=== PATIENT | male | born 1935 | race Caucasian/White ===

== ENCOUNTER → 2025-02-22 | Outpatient (CLI) | payer MEDICARE, SELFPAY ==
--- NOTE | 2025-02-22 14:49 | RAD_ITS ---
PROCEDURE: PELVIS 1 OR 2 VIEWS 02/22/2025 REASON FOR EXAM: INFLAMMATORY POLYARTHROPATHY TECHNIQUE: Procedure Code: RADPEL Modality: DX Procedure: PELVIS 1 OR 2 VIEWS COMPARISON: None available. FINDINGS: No evidence of acute fracture or dislocation. Mild right hip arthrosis. Left hip hemiarthroplasty with intact appearing hardware. Qualitative osteopenia. Degenerative changes of the lower lumbosacral spine. Grossly normal and symmetric appearance of the sacroiliac joints. Unremarkable soft tissues. RAD/Pelvis 1 or 2 Views IMPRESSION: No acute or aggressive osseous abnormality. Left hip arthroplasty with intact hardware. Reading Location: [id number]
[2025-02-22 18:06] LABS: Hematocrit 36.7 % (40-54); Hemoglobin 12.2 g/dL (13.0-16.5); Immature Granulocytes Count 0.040 X10^3/uL (0.0-0.0); Mean Corp Hgb Conc 33.2 g/dL (32-36); Mean Corpuscular Volume 95.1 fL (80-94); Mean Platelet Vol. 9.6 fl (6.2-12.0); NRBC Flagged by Analyzer 0 % (0-5); Platelet Count 344 K/mm3 (150-450); RBC Distribution Width CV 13.2 % (11.6-14.6); RBC Distribution Width SD 45.8 fl (35.1-43.9); Red Blood Count 3.86 M/mm3 (4.6-6.2); White Blood Count 9.4 K/mm3 (4.4-11.0)
[2025-02-22 19:10] LABS: AST(SGOT) 17 U/L (<=37); Alanine Aminotransfer ALT/SGPT 13 U/L (<=46); Albumin, Serum 4.1 g/dL (3.4-4.8); Alkaline Phosphatase 90 U/L (40-129); Anion Gap 19 (5-15); BUN 45 mg/dL (4-19); BUN/Creat Ratio 28.3 RATIO (10-20); Calcium,Total 9.6 mg/dL (7.6-11.0); Carbon Dioxide 18.8 mmol/L (21.0-32.0); Chloride 102 mmol/L (98-108); Globulin 3.7 g/dL (2.2-4.2); Glucose 125 mg/dL (70-99); Hepatitis B Surface Antigen Nonreactive (Nonreactive); Hepatitis C Antibody Nonreactive (Nonreactive); Potassium 3.8 mmol/L (3.3-5.1)
[2025-02-22 19:13] LABS: CRP 15.00 mg/L (0.0-3.0); Uric Acid 11.2 mg/dL (3.5-7.2)
[2025-02-24 15:08] LABS: ANTINUCLEAR ANTIBODIES DIRECT Negative (Negative)
== END | disposition home or self-care (01) ==
PROVIDERS: Referring Provider Internal Medicine Rheumatology; Visit Provider Internal Medicine Rheumatology
DX: M06.4 Inflammatory polyarthropathy (principal); M1A.9XX1 Chronic gout, unspecified, with tophus (tophi)
CPT/HCPCS: 36415; 72170; 80053; 84550; 85025; 85652; 86038; 86140; 86200; 86431; 86706; 86803; 87340